=== PATIENT | female | born 1980 | race Hispanic/Latino ===

== ENCOUNTER 2018-01-26 14:52 | Emergency (ER) | payer OTHER ==
[~2018-01-26] VITALS: Ht 160 cm; Wt 98.9 kg
--- NOTE | 2018-01-26 18:16 | Diagnostic Imaging Report ---
EXAMINATION: Head and face CT without contrast. HISTORY: Left eye swelling and bruising since 2 days before COMPARISON: None. TECHNIQUE: Multidetector axial images were obtained without contrast from the foramen magnum to the vertex and over the face. The images were reconstructed using brain and bone algorithms. Thin section brain images were reformatted into coronal and sagittal planes. Head CT findings: Skull: No lytic or blastic lesions. No fractures. Parenchyma: Normal. No mass, hemorrhage or CT evidence of acute vascular insult. Brain volume: Normal for age. Ventricles: No hydrocephalus or displacement. Arteries: No density suggestive of thrombus. Dural sinuses: No abnormal density. Extra-axial spaces: No abnormal density. Sella: Enlarged, partially empty, mostly CSF filled.. Face CT findings: Bones: Age indeterminate likely chronic minimally displaced right nasal bone fracture. No acute facial fractures Facial soft tissues: Minimal left preorbital preseptal soft tissue swelling, no radiopaque foreign bodies or underlying fractures. Orbits contents: Unremarkable. Paranasal sinuses and drainage pathways: Mucosal inflammatory thickening and partial opacification of the left sphenoid and left posterior ethmoidal sinuses. Nasal septum and nasal cavities: Prominent right-sided deviation with narrowing of the right nasal cavity. Anatomic variations: No significant anatomic variations. Teeth: No acute abnormality of the visualized teeth. Craniocervical junction: Prominent widening (about 5 mm AP dimension) of the anterior atlantodental interval with likely chronic subluxation and narrowing of the upper cervical spinal canal (near complete effacement of the subarachnoid space surrounding the spinal cord), no osseous erosion or soft tissue masses seen. A nonemergent cervical spine MRI is recommended to further evaluate ligaments, canal stenoses and spinal cord. Also orthopedic or neurosurgery consultation is recommended for further evaluation. IMPRESSION: 1. No intracranial abnormalities, particularly no hemorrhage. 2. No acute facial fractures. 3. Minimal left periorbital preseptal soft tissue swelling. 4. 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 Signed by: Dr. Sruthi Hanson M.D. on 01/26/2018 6:12 PM
[2018-01-26 18:25] LABS: AMPHETAMINES SCREEN,URINE NEGATIVE (NEGATIVE); BENZODIAZEPINES SCREEN,URINE NEGATIVE (NEGATIVE); PHENCYCLIDINE SCREEN,URINE NEGATIVE (NEGATIVE)
== END 2018-01-26 20:05 | disposition home or self-care (01) ==
LOC: ER 14:52
DX: S00.12XA Contusion of left eyelid and periocular area, initial encounter (principal); Y92.89 Other specified places as the place of occurrence of the external cause
CPT/HCPCS: 70450; 70486; 80307; 99283